=== PATIENT | female | born 1990 | race Caucasian/White ===

== ENCOUNTER 2018-08-23 17:59 | Emergency (ER) | payer SELFPAY ==
--- NOTE | 2018-08-23 18:19 | ED PDOC ---
Arrival/HPI - General Chief Complaint: Abdominal Pain Time Seen by Provider: 08/23/18 18:03 Historian: Patient - History of Present Illness Narrative History of Present Illness (Text): 08/23/18 18:37 27 yo F w/ no significant past medical history, presents for 1 week history of suprapubic abdominal pain associated with nausea. Patient states that today she had 2-3 episodes of vomiting, she also admits to feeling lightheaded and weak. She further reports that her period started today. She has a normal 28-day cycle and her last menstrual period was on July 13. States that she is and is sexually active, but uses no protection. Of note, patient states that she recently arrived from [place] here to [place] on June [place]. Otherwise she reports no fever, chills, diarrhea, urinary symptoms, dyspareunia, vaginal disc harge, history of ovarian cyst, history of endometriosis or uterine fibroids. She denies any history of any abdominal surgeries. Past Medical History - Travel History If Yes, travel location?: [place] - Psychiatric Hx Substance Use: No Family/Social History Family/Social History: No Known Family HX Smoking Status: Never Smoked Hx Alcohol Use: No Hx Substance Use: No Allergies/Home Meds Allergies/Adverse Reactions: Allergies No Known Allergies Allergy (Verified 08/23/18 18:02) Home Medications: Home Meds Medication Instructions Recorded Confirmed No Known Home Med 08/23/18 08/23/18 Review of Systems - Review of Systems Constitutional: absent: Fatigue, Fevers Respiratory: Cough. absent: SOB Cardiovascular: absent: Chest Pain, Palpitations Gastrointestinal: Abdominal Pain, Nausea. absent: Constipation, Diarrhea, Vomiting Genitourinary Female: absent: Dysuria, Frequency, Hematuria Musculoskeletal: absent: Arthralgias, Back Pain, Neck Pain Skin: absent: Rash, Pruritis, Skin Lesions Neurological: absent: Headache, Dizziness Physical Exam Appearance: Positive for: Well-Appearing, Non-Toxic, Comfortable Pain Distress: None Mental Status: Positive for: Alert and Oriented X 3 - Systems Exam Head: Present: Atraumatic, Normocephalic Pupils: Present: PERRL Extroacular Muscles: Present: EOMI Conjunctiva: Present: Normal Mouth: Present: Dry Neck: Present: Normal Range of Motion. No: Meningeal Signs, Lymphadenopathy Respiratory/Chest: Present: Clear to Auscultation, Good Air Exchange. No: Respiratory Distress, Accessory Muscle Use Cardiovascular: Present: Regular Rate and Rhythm, Normal S1, S2. No: Murmurs Abdomen: Present: Tenderness (+mild suprapubic tenderness). No: Distention, Peritoneal Signs, Rebound, Guarding Back: Present: Normal Inspection Upper Extremity: Present: Normal Inspection. No: Cyanosis, Edema Lower Extremity: Present: Normal Inspection. No: Edema Neurological: Present: GCS=15, CN II-XII Intact, Speech Normal Skin: Present: Warm, Dry, Normal Color. No: Rashes Psychiatric: Present: Alert, Oriented x 3, Normal Insight, Normal Concentration Medical Decision Making ED Course and Treatment: 08/23/18 18:18 Plan : - IV - Labs - UA, urine cx - Pepcid / Zofran / Toradol - Reassess / disposition cg : (-). Labs : cbc wbc 16, cmp still pending, UA +blood. On reevaluation, patient reports significant improvement of symptoms, denies any pain or nausea, states that she thinks she may have dysmenorrhea. States that she does not want to wait for the rest of the lab results, is refusing US and wishes to leave AMA. On exam, patient remains awake alert and oriented 3 in no acute distress, she is smiling and in good spirits. 08/23/18 19:30 The patient is choosing to leave against medical advice. I have personally explained to the patient that choosing to do so may result in permanent bodily harm or . I have discussed at great length that without further evaluation and monitoring there may be unforeseen circumstances and/or deterioration causing permanent bodily harm or as a result of their choice. The patient is alert, oriented, and shows the mental capacity to make clear decisions regarding the patients health care at this time. The patient continues to wish to leave against medical advice. In light of the patients decision to leave against medical advice, patient was encouraged to follow-up with the clinic as instructed. The patient has been advised that she should return to the emergency room immediately if she change her mind at any time, or if her condition begins to change or worsen in any way. - PA / THIRD HELPER / Resident Statement / has reviewed & agrees with the documentation as recorded. Disposition/Present on Arrival - Present on Arrival Any Indicators Present on Arrival: No History of DVT/PE: No History of Uncontrolled Diabetes: No Urinary Catheter: No History of Decub. Ulcer: No History Surgical Site Infection Following: None - Disposition Have Diagnosis and Disposition been Completed?: Yes Diagnosis: Abdominal pain Disposition: AGAINST MEDICAL ADVICE Disposition Time: 19:30 Patient Plan: Other (Patient wishes to leave AMA.) Condition: UNKNOWN Discharge Instructions (ExitCare): Acute Abdomen (Belly Pain), Adult (DC), Leaving Against Medical Advice Additional Instructions: Thank you for letting us take care of you today. You are choosing to leave against medical advice. You were treated for abdominal pain. The emergency medical care you received today was directed at your acute symptoms. Return to the Emergency Department if your symptoms worsen, do not improve, or if you have any other problems. Please contact your doctor in 2 days for re-evaluation and follow up / or call one of the physicians/clinics you have been referred to that are listed on the Patient Visit Information form that is included in your discharge packet. Bring any paperwork you were given at discharge with you along with any medications you are taking to your follow up visit. Our treatment cannot replace ongoing medical care by a primary care provider (PCP) outside of the emergency department. [facility] today. Referrals: PCP,NO [Primary Care Provider] - [place] up [place] [facility] [place] [facility] [place] - Follow up with primary Forms: [employer] ([place])
[2018-08-23 18:25] VITALS: RESP 18
[2018-08-23] MEDS ORDERED: Sodium Chloride 0.9% 1,000 ML IV STA (18:34)
[2018-08-23 19:22] LABS: BASO # 0.01 K/mm3 (0.0-2.0); BASO % 0.1 % (0.0-3.0); EOS # 0.3 (0.0-0.7); HEMOGLOBIN 12.5 g/dL (12.0-16.0); LYMPH # 1.6 (1.2-3.4); MEAN CELL VOLUME 92.9 fl (80.0-105.0); MEAN CORPUSCULAR HEMOGLOBIN 29.7 pg (25.0-35.0); MEAN PLATELET VOLUME 13.3 fl (7.0-11.0); MONO # 1.2 (0.1-0.6); MONO % 7.6 % (1.0-6.0); PH,URINE 8.5 (4.7-8.0); RBC 4.21 10^6/uL (3.5-6.1); RED CELL DISTRIBUTION WIDTH 12.7 % (11.5-14.5); URINE BILIRUBIN NEGATIVE (NEGATIVE); URINE BLOOD LARGE (NEGATIVE); URINE GLUCOSE (UA) NEGATIVE (NEGATIVE); URINE LEUKOCYTE ESTERASE NEGATIVE Leu/uL (NEGATIVE); URINE PROTEIN NEGATIVE mg/dL (<30 mg/dL); URINE UROBILINOGEN 0.2 E.U./dL (<1 E.U./dL)
[2018-08-23 19:26] LABS: INR 1.12; PARTIAL THROMBOPLASTIN TIME 32.9 Seconds (26.9-38.3); PROTHROMBIN TIME 12.4 SECONDS (9.4-12.5); URINE APPEARANCE SL CLOUDY (CLEAR); URINE COLOR YELLOW (YELLOW)
[2018-08-23 19:33] LABS: ALB/GLOB RATIO 1.2 (1.1-1.8); ALBUMIN 4.4 g/dL (3.0-4.8); ALT/SGPT 14 U/L (7-56); AST/SGOT 27 U/L (14-36); BLOOD UREA NITROGEN 9 mg/dL (7-21); CALCIUM 8.7 mg/dL (8.4-10.5); GFR NON-AFRICAN AMERICAN > 60
[2018-08-23 19:39] LABS: URINE BACTERIA MOD /hpf; URINE RBC TNTC /hpf (0-2)
[2018-08-23 19:50] VITALS: BP 101/64; PULSE 82; TEMP 98.2; O2SAT 98
[2018-08-23 19:56] LABS: LIPASE 118 U/L (23-300)
== END 2018-08-23 19:50 | disposition left against medical advice (07) ==
LOC: ED 17:59
DX: R10.9 Unspecified abdominal pain (principal)
CPT/HCPCS: 80053; 81001; 81025; 83690; 83735; 85025; 85610; 85730; 87086; 96374; 96375; 99284; J1885; J2405; J7030